=== PATIENT | female | born 2000 | race Hispanic/Latino ===

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

== ENCOUNTER 2024-06-16 12:42 | Emergency (ER) | payer SELFPAY ==
[~2024-06-16] VITALS: Ht 149.9 cm; Wt 49.9 kg
[2024-06-16 13:37] LABS: BASOPHILS # (AUTO) 0.04 K/uL (0.00-0.20); BASOPHILS % (AUTO) 0.5 % (0.0-5.0); EOSINOPHILS # (AUTO) 0.01 K/uL (0.00-0.70); EOSINOPHILS % (AUTO) 0.1 % (0.0-8.0); HEMATOCRIT 37.7 % (36-48); IMMATURE GRANULOCYTE ABSOLUTE 0.04 K/uL (0-1); LYMPHOCYTES # (AUTO) 0.6 K/uL (1.0-4.8); LYMPHOCYTES % (AUTO) 7.6 % (21.0-51.0); MEAN CORPUSCULAR HEMOGLOBIN 23.2 pg (27.0-33.0); MEAN CORPUSCULAR VOLUME 77.4 fL (79-99); MONOCYTES # (AUTO) 0.6 K/uL (0.1-1.0); MONOCYTES % (AUTO) 7.5 % (3.0-13.0); NEUTROPHILS # (AUTO) 6.6 K/uL (1.8-7.7); NEUTROPHILS % (AUTO) 83.8 % (40.0-77.0); PLATELET COUNT (AUTO) 258 K/uL (130-400); RED BLOOD CELL COUNT(AUTO) 4.87 MIL/uL (4.00-5.50); RED CELL DISTRIBUTION WIDTH 15.9 % (11.0-15.5); WHITE BLOOD COUNT (AUTO) 7.9 K/uL (4.8-10.8)
[2024-06-16 13:43] LABS: CREATININE 0.6 mg/dL (0.5-1.0); POTASSIUM 3.6 mmol/L (3.5-5.1)
[2024-06-16 13:57] LABS: APPEARANCE,URINE CLEAR (CLEAR); BILIRUBIN,URINE NEGATIVE (NEGATIVE); COLOR,URINE YELLOW (YELLOW); GLUCOSE, URINE (UA) NEGATIVE (NEGATIVE); KETONES,URINE 150 mg/dL (NEGATIVE); LEUKOCYTE ESTERASE ,URINE NEGATIVE Leu/uL (NEGATIVE); NITRATE,URINE NEGATIVE (NEGATIVE); OCCULT BLOOD,URINE NEGATIVE (NEGATIVE); PH,URINE 5.5 (5.0-8.0); PROTEIN,URINE 20 mg/dL (NEGATIVE); UROBILINOGEN,URINE 0.2 mg/dL (0.2-1.0)
[2024-06-16 14:02] LABS: ADD UA MICROSCOPIC YES
[2024-06-16 14:07] LABS: BACTERIA,URINE RARE /HPF (None Seen); MUCUS,URINE MANY LPF (None Seen); RBC,URINE 0-1 /HPF (0-1); SQUAMOUS EPITHELIAL CELL,UR FEW /HPF (0-2); WBC,URINE 0-1 /HPF (0-1)
--- NOTE | 2024-06-16 15:26 | ERN ---
ED Note History of Present Illness Stated Complaint: VOMITTING, DIARRHEA, LOWER BACK PAIN Chief Complaint: Low Back Pain/Injury Time Seen by MD: 15:10 Dictation: Patient comes in for some lower back pain. No falls or traumas some vomiting diarrhea. Also does have some abdominal pain Allergies: Coded Allergies: No Known Drug Allergies (Unverified Allergy, Unknown, 10/29/18) Past Medical History Past Medical History: No Pertinent History Surgical History: None Review of System Dictation Constitutional: Negative for fever,chills, and weight loss Eyes: Negative for injury, pain,redness, and discharge ENT: Negative for injury,pain or swelling Cardiovascular: Negative for chest pain, palpitations, and edema Respiratory: Negative for shortness of breath, cough, and wheezing, Abdomen/GI: Abdominal pain diarrhea Back: Negative for injury and pain : Negative for injury, bleeding and discharge MS/Extremity: Negative for injury and deformity Skin: Negative for rash, and discoloration Neuro: Negative for headache, weakness, numbness, tingling, and seizure Psych: Negative for suicide ideation, homicidal ideation, and hallucinations Initial Vital Sign VS Vital Signs Date Time Temp Pulse Resp B/P (MAP) Pulse Ox O2 Delivery O2 Flow Rate FiO2 06/16/24 13:06 99.0 115 20 117/68 99 Room Air 0 Physical Exam Dictation General: awake, alert, NAD Head/Face: Normocephalic, atraumatic Eyes: PERRL, EOMI, vision at baseline ENT: oral cavity clear, TMs clear, no signs of infection Neck: Trachea midline, supple, no nuchal rigidity Cardiovascular: RRR, normal S1/S2, No MRGs, no JVD Respiratory: CTAB, no respiratory distress, No rales or wheezes Abdomen: Abdominal pain Skin: Warm, dry, normal turgor, no rash MS/Extremity: Pulses equal, no cyanosis, neurovascular intact, FROM Neuro: COAx4, GCS 15, strength 5/5, CN 2-12 intact, normal cerebellar exam, normal gait, Psych: Normal behavior, mood, and affect normal Negative psoas negative obturator. Results (Laboratory/Radiology) Laboratory/Radiology Laboratory Tests Test 06/16/24 13:27 06/16/24 13:28 White Blood Count 7.9 K/uL (4.8-10.8) Red Blood Count 4.87 MIL/uL (4.00-5.50) Hemoglobin 11.3 g/dL (12.0-16.0) L Hematocrit 37.7 % (36-48) Mean Corpuscular Volume 77.4 fL (79-99) L Mean Corpuscular Hemoglobin 23.2 pg (27.0-33.0) L Mean Corpuscular Hemoglobin Concent 30.0 g/dL (32.0-36.0) L Red Cell Distribution Width 15.9 % (11.0-15.5) H Platelet Count 258 K/uL (130-400) Mean Platelet Volume 11.0 fL (7.5-10.5) H Immature Granulocyte % (Auto) 0.5 % (0-1) Neutrophils (%) (Auto) 83.8 % (40.0-77.0) H Lymphocytes (%) (Auto) 7.6 % (21.0-51.0) L Monocytes (%) (Auto) 7.5 % (3.0-13.0) Eosinophils (%) (Auto) 0.1 % (0.0-8.0) Basophils (%) (Auto) 0.5 % (0.0-5.0) Neutrophils # (Auto) 6.6 K/uL (1.8-7.7) Lymphocytes # (Auto) 0.6 K/uL (1.0-4.8) L Monocytes # (Auto) 0.6 K/uL (0.1-1.0) Eosinophils # (Auto) 0.01 K/uL (0.00-0.70) Basophils # (Auto) 0.04 K/uL (0.00-0.20) Absolute Immature Granulocyte (auto 0.04 K/uL (0-1) Nucleated Red Blood Cells 0.0 % (0.0-0.19) White Cell Morphology Comment See comments Red Blood Cell Morphology See comments Urine Color YELLOW (YELLOW) Urine Appearance CLEAR (CLEAR) Urine pH 5.5 (5.0-8.0) Urine Specific Benedict 1.033 (1.001-1.031) Urine Protein 20 mg/dL (NEGATIVE) H Urine Glucose (UA) NEGATIVE mg/dL (NEGATIVE) Urine Ketones 150 mg/dL (NEGATIVE) H Urine Occult Blood NEGATIVE (NEGATIVE) Urine Nitrate NEGATIVE (NEGATIVE) Urine Bilirubin NEGATIVE mg/dL (NEGATIVE) Urine Urobilinogen 0.2 mg/dL (0.2-1.0) Urine Leukocyte Esterase NEGATIVE Jorge L/uL Urine RBC 0-1 /HPF (0-1) Urine WBC 0-1 /HPF (0-1) Urine Squamous Epithelial Cells FEW /HPF (0-2) Urine Bacteria RARE /HPF (None Seen) Sodium Level 140 mmol/L (136-145) Potassium Level 3.6 mmol/L (3.5-5.1) Chloride Level 103 mmol/L (101-111) Carbon Dioxide Level 29 mmol/L (21-32) Blood Urea Nitrogen 15 mg/dL (7-18) Creatinine 0.6 mg/dL (0.5-1.0) Glomerular Filtration Rate Calc 129 mL/min (>90) Random Glucose 86 mg/dL (70-105) Total Calcium 8.8 mg/dL (8.5-10.1) Lipase 16 U/L (16-77) Urine HCG, Qualitative NEGATIVE (NEGATIVE) ED Course ED Course Orders Procedure Category Date Status Time Vital Signs Per CPOE 06/16/24 Transmitted Routine 13:09 Saline Lock Iv CPOE 06/16/24 Transmitted 13:09 Cbc With Differential LAB 06/16/24 Complete 13:09 Lipase LAB 06/16/24 Complete 13:09 Urinalysis Profile LAB 06/16/24 Complete 13:09 Basic Metabolic Panel LAB 06/16/24 Complete 13:09 Ct Abdomen/Pelvis W/O CT 06/16/24 Resulted Contrast 15:20 ,Urine Test LAB 06/16/24 Complete 15:21 Hydrocodone/Apap PHA 06/16/24 Complete 5/325 ([place] 5/325mg) 15:30 Ondansetron 4mg PHA 06/16/24 Complete Tablet (Zofran 4mg 16:00 Mag/Alum/Simeth 30ml PHA 06/16/24 Complete (Maalox Plus 30ml) 16:00 Current Medications Medications (Trade) Dose Ordered Sig/Radha Route PRN Reason Start Time Stop Time Status Last Admin Dose Admin Acetaminophen/ Hydrocodone Bitart (NORco 5/325MG) 1 tab ONCE ONCE PO 06/16/24 15:30 06/16/24 15:31 DC 06/16/24 15:49 Al Hydroxide/Mg Hydroxide (MAALox PLUS 30ML) 30 ml ONCE ONCE PO 06/16/24 16:00 06/16/24 16:01 DC 06/16/24 15:48 Ondansetron HCl (zoFRAN 4MG TABLET) 4 mg ONCE ONCE PO 06/16/24 16:00 06/16/24 16:01 DC 06/16/24 15:49 Vital Signs Date Time Temp Pulse Resp B/P (MAP) Pulse Ox O2 Delivery O2 Flow Rate FiO2 06/16/24 13:06 99.0 115 20 117/68 99 Room Air 0 Medical Decision Making MDM MDM: Differential diagnosis: Consider gastroenteritis. Muscle sprain muscle spasm. Early appendicitis. And/or concomitant of both of these syndrome. Negative psoas negative obturator no white count. Patient is feeling better after medications. I told him now I do not have any clinical evidence that she has any appendicitis. I told her if the next 12-24 hours if she is not improve. Or starts getting fevers chills or continues to have nausea vomiting or abdominal pain. Or diarrhea to return immediately to the ED I told him I do not have evidence appendicitis now but there is a a remote possibility that this does occur in these is following day or two. Rationale: Tests considered and ordered secondary to shared decision making include: Previous outside records reviewed: Old ER visits. Risk of complication and/or morbidity or mortality of patient management: None Medications-Per medication reconciliation Need for hospitalization: Patient does not meet criteria for hospitalization. Need for emergency major/minor surgery: No There are no social concerns with this patient. Prescription drug management Prescriptions will include symptomatic care Patient's prior external medical records from other ER visits were reviewed by me as indicated. Prior testing and results from previous visits were reviewed. Prior tests were taken into account with medical decision making and resource ut ilization, independent historian/historians were used to obtain complete medical history. I independently interpreted the test that were performed, results were reviewed by me and considered findings on radiology if ordered. Medical management and examination interpretation discussions were had by me with other qualified healthcare professionals as indicated for the patient's car e. DX & DISP Disposition: Discharge ( complaints concerns they are appreciative care) Departure Impression: Primary Impression: Abdominal pain Additional Impressions: Diarrhea, Vomiting Condition: Stable Referrals: SELF,REFERRAL (PCP) HEIDI HUTTON MD Jun 16, 2024 15:26
[2024-06-16] MEDS: MAG/ALUM/SIMETH 30 ML UDCUP PO ONE (15:48)
[2024-06-16] MEDS: ondanSETRON 4MG TABLET PO ONE (15:49)
[2024-06-16] MEDS: HYDROcodone/APAP 5/325 1 TAB TABLET PO ONE (15:49)
--- NOTE | 2024-06-16 16:07 | HMCIMG ---
CT ABDOMEN/PELVIS W/O CONTRAST REASON: RLQ PAIN COMPARISON: 08/15/2019 FINDINGS: Lung bases are clear. There are no focal liver lesions. There are normal-appearing kidneys.. Spleen and pancreas appear unremarkable. The gallbladder appears normal as well. Bowel loops appear unremarkable. The appendix was not separately identified. There is no secondary CT evidence of acute appendicitis such as appendicolith or phlegmon, however uncomplicated acute appendicitis cannot be excluded in this setting. There is no evidence of free fluid or intraperitoneal air. There are no focal fluid collections. Aorta and retroperitoneum appear normal as do pelvic soft tissue structures. The anterior abdominal wall is intact. Osseous structures appear unremarkable. IMPRESSION: 1. Negative noncontrast CT abdomen and pelvis. 2. The appendix was not separately identified, there is no secondary CT evidence of acute appendicitis, however early uncomplicated acute appendicitis cannot be excluded by this exam. CT was performed with one or more following dose reduction techniques: automated exposure control, adjustment of the mA and kv according to patient's size, or use of a iterative reconstruction technique.
[2024-06-16] MEDS ORDERED: ONDA-243 PO (16:28)
[2024-06-16] MEDS ORDERED: METH-662 PO (16:28)
[2024-06-16] MEDS ORDERED: PANT40TA54 PO (16:28)
[2024-06-16] MEDS: 0.9%NACL 1000ML 1,000 ML IV ONE (16:56)
[2024-06-16] MEDS: ibuPROFEN 600 MG TABLET PO ONE (16:56)
[2024-06-16] MEDS: acetaMINOPHEN 325 MG TAB PO ONE (16:57)
[2024-06-16 17:50] VITALS: TEMP 99
[2024-06-16 17:53] VITALS: BP 112/66; PULSE 84; RESP 17; TEMP 99; O2SAT 96
== END 2024-06-16 18:03 | disposition home or self-care (01) ==
LOC: EDH 12:42
DX: R10.9 Unspecified abdominal pain (principal); R19.7 Diarrhea, unspecified; R11.10 Vomiting, unspecified; M54.50 Low back pain, unspecified
CPT/HCPCS: 99284; 74176; 96360; 80048; 83690; 85025; 81001; 81025; 36415; Q0162; J7030